=== PATIENT | female | born 1975 | race African-American/Black ===

== ENCOUNTER 2016-08-05 12:01 | Emergency (ER) | payer BC ==
[2016-08-05] MEDS ORDERED: OPTIRAY 350 100 ML VIAL HMH IV ONE (12:02)
== END 2016-08-05 16:00 | disposition home or self-care (01) ==
LOC: ER 12:01
DX: R10.2 Pelvic and perineal pain (principal); K59.00 Constipation, unspecified
CPT/HCPCS: 36415; 74177; 80053; 81003; 83690; 84703; 85025; 87491; 87591; 87800